=== PATIENT | male | born 1965 | race Caucasian/White ===

== ENCOUNTER → 2020-05-12 | Outpatient (CLI) | payer BC, MEDICARE ==
[~2020-05-12] MED LIST: BACL-19 PO; WARF-36 PO
[2020-05-12 13:55] LABS: BASOPHILS % (AUTO) 1 % (0-1); EOSINOPHILS % (AUTO) 3 % (1-7); LYMPHOCYTES % (AUTO) 33 % (22-44); MEAN CORPUSCULAR HEMOGLOBIN 29.6 pg (27.5-34.5); MEAN CORPUSCULAR HGB CONC 34.6 g/dL (33.2-36.2); MEAN PLATELET VOLUME 8.1 fL (7.4-10.4); MONOCYTES % (AUTO) 9 % (2-9); NEUTROPHILS % (AUTO) 55 % (42-75); PLATELET COUNT 328 x10^3/uL (130-400); RED CELL DISTRIBUTION WIDTH 14.7 % (9.4-14.8)
[2020-05-12 14:02] LABS: ALANINE AMINOTRANSFERASE 32 U/L (12-78); ALBUMIN 4.5 g/dL (3.4-5.0); ANION GAP 8 mmol/L (5-15); CALCIUM 9.6 mg/dL (8.5-10.1); CHLORIDE 106 mmol/L (98-107); MD NO
[2020-05-12 14:05] LABS: ALKALINE PHOSPHATASE 79 U/L (45-117); BILIRUBIN,TOTAL 0.7 mg/dL (0.2-1.0); CREATININE 0.99 mg/dL (0.7-1.3); TOTAL PROTEIN 8.2 g/dL (6.4-8.2)
== END | disposition home or self-care (01) ==
LOC: STAR 12:36
PROVIDERS: ATTEND Urology
DX: Z01.818 Encounter for other preprocedural examination (principal); C61 Malignant neoplasm of prostate; I45.19 Other right bundle-branch block; Z20.822 Contact with and (suspected) exposure to COVID-19
CPT/HCPCS: 80053; 85025; 87635; 93005

== ENCOUNTER 2020-05-18 05:41 | Inpatient (IN) | payer BC, MEDICARE ==
[~2020-05-18] VITALS: Ht 172.7 cm; Wt 111.4 kg
[2020-05-18 06:10] VITALS: BP 97/70
[2020-05-18] MEDS ORDERED: CHLORHEXIDINE 15 ML UDC ONE (06:11)
[2020-05-18] MEDS ORDERED: LISI-170 PO (06:21)
[2020-05-18] MEDS ORDERED: LOVENOX SQ (06:21)
[2020-05-18] MEDS ORDERED: CHLORHEXIDINE 15 ML UDC MM ONE (06:30)
[2020-05-18] MEDS ORDERED: LACTATED RINGERS 1,000 ML IV SCH (06:30)
[2020-05-18] MEDS ORDERED: OPIUM/BELLADONNA SUPP.RECT 16.2-60 MG ONE (07:00)
[2020-05-18] MEDS ORDERED: EPINEPHRINE 1 MG/ML, 1ML ONE ×2 (07:00→08:11)
[2020-05-18] MEDS ORDERED: BUPIVACAINE/PF 0.25% ONE (07:00)
[2020-05-18] MEDS ORDERED: ACETAMINOPHEN 500 MG TABLET ONE (07:03)
[2020-05-18] MEDS ORDERED: MIDAZOLAM 1 MG/ML, 2ML ONE (07:07)
[2020-05-18] MEDS ORDERED: LIDOCAINE-MPF 2% ,5ML ONE (07:08)
[2020-05-18] MEDS ORDERED: FENTANYL PF 250 MCG/5ML ONE (07:08)
[2020-05-18] MEDS ORDERED: ACETAMINOPHEN 500 MG TABLET PO ONE (07:30)
[2020-05-18] MEDS ORDERED: LABETALOL 5MG/ML, 20ML IV PRN (07:30)
[2020-05-18] MEDS ORDERED: PROMETHAZINE 25 MG/ML, 1ML IVPush PRN (07:30)
[2020-05-18] MEDS ORDERED: FENTANYL PF 100 MCG/2ML IV PRN (07:30)
[2020-05-18] MEDS ORDERED: HYDROmorphone 1 MG/ML, 1ML INJ IVPush PRN (07:30)
[2020-05-18] MEDS ORDERED: OXYcodone 5 MG/5 ML ORAL.SOL UDC PO PRN (07:30)
[2020-05-18] MEDS ORDERED: METHOCARBAMOL 1,000 MG in DEXTROSE 5% 100 ML IV PRN (07:30)
[2020-05-18] MEDS ORDERED: ONDANSETRON 2MG/ML, 2ML IVPush PRN (07:30)
[2020-05-18] MEDS ORDERED: hydrALAzine 20 MG/ML, 1ML IV PRN (07:30)
[2020-05-18] MEDS ORDERED: KETOROLAC 30 MG/1 ML ONE (07:46)
[2020-05-18] MEDS ORDERED: SUGAMMADEX 200 MG/2 ML IVPush ONE (07:46)
[2020-05-18] MEDS ORDERED: DEXAMETHASONE 4 MG/ML, 1ML ONE (07:47)
[2020-05-18] MEDS ORDERED: CEFAZOLIN 1,000 MG ONE (07:47)
[2020-05-18] MEDS ORDERED: PROPOFOL 10 MG/ML, 20ML ONE (07:47)
[2020-05-18] MEDS ORDERED: ROCURONIUM 10MG/ML,5ML ONE ×2 (07:47→08:14)
[2020-05-18] MEDS ORDERED: SUCCINYLCHOLINE 20 MG/ML, 10ML ONE (07:47)
[2020-05-18] MEDS ORDERED: ONDANSETRON 2MG/ML, 2ML ONE (07:47)
[2020-05-18] MEDS ORDERED: PHENYLEPHRINE 10 MG/ML ONE ×2 (08:41→11:23)
[2020-05-18] MEDS ORDERED: GLYCOPYRROLATE 0.2MG/1ML, 5ML ONE (09:16)
[2020-05-18] MEDS ORDERED: OXYcodone 5 MG/5 ML ORAL.SOL UDC ONE (12:11)
[2020-05-18] MEDS ORDERED: FENTANYL PF 100 MCG/2ML ONE (12:12)
[2020-05-18] MEDS ORDERED: HYDROmorphone 1 MG/ML, 1ML INJ ONE (12:12)
[2020-05-18] MEDS ORDERED: PROMETHAZINE 25 MG/ML, 1ML ONE (12:17)
[2020-05-18] MEDS ORDERED: EPHEDRINE 50 MG/ML, 1ML ONE (12:55)
[2020-05-18] MEDS: EPHEDRINE 50 MG/ML, 1ML IVPush PRN ×2 (13:00→13:20)
[2020-05-18 14:56] VITALS: BP 106/68
[2020-05-18] MEDS ORDERED: OPIUM/BELLADONNA SUPP.RECT 16.2-60 MG PR PRN (15:00)
[2020-05-18] MEDS ORDERED: ONDANSETRON 2MG/ML, 2ML IV PRN (15:00)
[2020-05-18] MEDS ORDERED: HYDROmorphone 1 MG/ML, 1ML INJ IV PRN (15:00)
[2020-05-18] MEDS: ACETAMINOPHEN 500 MG TABLET PO SCH ×2 (15:36→22:35)
[2020-05-18] MEDS: D5%-0.45NACL+KCL 20MEQ 1,000 ML IV SCH ×2 (16:28→23:10)
[2020-05-18] MEDS: OXYcodone IR 5MG TABLET PO PRN ×2 (16:28→20:14)
[2020-05-18 19:03] VITALS: BP 93/57
[2020-05-18] MEDS: ENOXAPARIN 30 MG/0.3 ML SQ SCH (20:13)
[2020-05-18] MEDS: FAMOTIDINE 20 MG/2 ML IVPush SCH (20:13)
[2020-05-19 00:17] VITALS: BP 97/60
[2020-05-19 04:14] VITALS: BP 90/58
[2020-05-19] MEDS: ACETAMINOPHEN 500 MG TABLET PO SCH ×2 (04:29→08:52)
[2020-05-19] MEDS: OXYcodone IR 5MG TABLET PO PRN (04:29)
[2020-05-19 05:39] LABS: ANION GAP 6 mmol/L (5-15); CALCIUM 8.4 mg/dL (8.5-10.1); CHLORIDE 104 mmol/L (98-107); CREATININE 1.11 mg/dL (0.7-1.3)
[2020-05-19] MEDS: D5%-0.45NACL+KCL 20MEQ 1,000 ML IV SCH (05:54)
[2020-05-19 08:00] VITALS: BP 97/62
[2020-05-19] MEDS ORDERED: OXYC5TAB98 PO (08:31)
[2020-05-19] MEDS: FAMOTIDINE 20 MG/2 ML IVPush SCH (08:51)
[2020-05-19] MEDS ORDERED: LISINOPRIL 5 MG TABLET PO SCH (09:00)
[2020-05-19] MEDS ORDERED: BACLOFEN 10 MG TABLET PO SCH (09:00)
[2020-05-19] MEDS: ENOXAPARIN 30 MG/0.3 ML SQ SCH (09:00)
== END 2020-05-19 11:55 | disposition home or self-care (01) | DRG 708 ==
LOC: OUT 05:41 → 4NE 14:39 → OUT 14:43 → 4NE 18:22 → DCLOUNGE 05-19 11:43
PROVIDERS: ADMIT Urology; ATTEND Urology
PROC: 0VT34ZZ Resection of Bilateral Seminal Vesicles, Percutaneous Endoscopic Approach (ICD-10-PCS; 2020-05-18)
PROC: 8E0W4CZ Robotic Assisted Procedure of Trunk Region, Percutaneous Endoscopic Approach (ICD-10-PCS; 2020-05-18)
PROC: 0VBQ4ZZ Excision of Bilateral Vas Deferens, Percutaneous Endoscopic Approach (ICD-10-PCS; 2020-05-18)
PROC: 0VT04ZZ Resection of Prostate, Percutaneous Endoscopic Approach (ICD-10-PCS; principal; 2020-05-18 07:30)
DX: C61 Malignant neoplasm of prostate (principal); K66.0 Peritoneal adhesions (postprocedural) (postinfection)
CPT/HCPCS: 36415; J3490; 80048; 85014; 85018; 86850; 86900; 88309; C1729; G0378; J0171; J0690; J1100; J1170; J1650; J1885; J2250; J2405; J2550; J2704; J3010; C1760; J0330; J2370; J2800; J3480; J7120